=== PATIENT | male | born 1950 | race Caucasian/White ===

== ENCOUNTER 2022-04-17 14:06 | Emergency (ER) | payer MEDICARE, OTHER ==
[2022-04-17] MEDS ORDERED: Sodium Chloride 0.9% 10 ML Syringe FLUSH PRN (14:41)
[2022-04-17] MEDS ORDERED: Sodium Chloride 0.9% 1,000 ML IV ONE (14:41)
[2022-04-17] MEDS ORDERED: Acetaminophen 325 MG Tab PO ONE ×2 (14:46→18:41)
[2022-04-17 16:59] LABS: CORONAVIRUS COVID-19 NAA POSITIVE (NEGATIVE)
[2022-04-17] MEDS ORDERED: diphenhydrAMINE 50 MG/ML SDV IVPUSH PRN (18:13)
[2022-04-17] MEDS ORDERED: EPINEPHrine 1 MG/ML SDV IM PRN (18:13)
[2022-04-17] MEDS ORDERED: methylPREDNISolone Sodium Succinate 125 MG/2 ML SDV IVPUSH PRN (18:13)
[2022-04-17] MEDS ORDERED: Famotidine 20 MG/2 ML SDV IVPUSH PRN (18:13)
[2022-04-17] MEDS ORDERED: Sodium Chloride 0.9% 10 ML Syringe FLUSH SCH (18:15)
[2022-04-17] MEDS ORDERED: Acetaminophen 325 MG Tab PO PRN (20:00)
[2022-04-18] MEDS ORDERED: Piperacillin/Tazobactam 4.5 GM in Sodium Chloride 0.9% 100 ML IV ONE (09:55)
== END 2022-04-18 10:30 ==
LOC: JD.ED 14:06
DX: U07.1 COVID-19 (principal); N18.4 Chronic kidney disease, stage 4 (severe); D63.1 Anemia in chronic kidney disease
CPT/HCPCS: 0240U; 36415; 71045; 80053; 81001; 83605; 85025; 85610; 86140; 86850; 86900; 86901; 87040; 87077; 87186; 96361; 96365; 96372; 99283; A9270; J2543; J3490; J7030; M0222; Q0222

== ENCOUNTER 2022-11-02 17:58 | Emergency (ER) | payer MEDICARE, OTHER ==
[2022-11-02] MEDS ORDERED: methylPREDNISolone Sodium Succinate 40 MG/1 ML SDV IVPUSH ONE (18:41)
[2022-11-02 19:03] LABS: APPEARANCE,URINE SLT CLOUDY (Clear); BILIRUBIN,URINE NEGATIVE (Negative); COLOR,URINE YELLOW (Yellow); GLUCOSE,URINE 1+ (Negative); KETONES,URINE NEGATIVE (Negative); LEUKOCYTE ESTERASE,URINE NEGATIVE (Negative); NITRITE,URINE NEGATIVE (Negative); OCCULT BLOOD,URINE TRACE-INTACT (Negative); PH,URINE >=9.0 (5.0-8.0); PROTEIN,URINE 3+ (Negative); UROBILINOGEN,URINE 0.2 (0.2-1.0)
[2022-11-02 19:11] LABS: A/G RATIO 0.8 (1-2); ALANINE AMINOTRANSFERASE,ALT 16 U/L (16-63); ALBUMIN 2.7 g/dl (3.4-5.0); ALKALINE PHOSPHATASE 75 U/L (46-116); ANION GAP 9.3 (5-15); ASPARTATE AMNIOTRANSFERASE,AST 12 U/L (15-37); BILIRUBIN TOTAL 0.6 mg/dL (0.2-1.0); BLOOD UREA NITROGEN,BUN 11 mg/dL (7-18); BUN/CREATININE RATIO 4.6 (14-18); CARBON DIOXIDE,CO2 29 mEq/L (21-32); CHLORIDE,CL 100 mEq/L (98-107); CREATININE 2.4 mg/dL (0.7-1.3); ESTIMATED GFR 28 mL/min (>60); GLUCOSE RANDOM 150 mg/dL (70-99); POTASSIUM,K 3.3 mEq/L (3.5-5.1); PROTEIN TOTAL,TP 5.9 g/dl (6.4-8.2); SODIUM,NA 135 mEq/L (136-145)
[2022-11-02 19:18] LABS: EOSINOPHILS PERCENT AUTO 0 (0.8-7.0); IMMATURE GRAN ABSOLUTE AUTO 0.07 K/mm3 (0.00-0.10); IMMATURE GRAN PERCENT AUTO 3.6 % (<=1.0); LYMPHOCYTES ABSOLUTE AUTO 1.23 K/mm3 (1.32-3.57); LYMPHOCYTES PERCENT AUTO 64.1 % (21.8-53.1); MEAN CORPUSCULAR HEMOGLOBIN 31.7 pg (25.7-32.2); MEAN CORPUSCULAR HGB CONC 31.6 g/dl (32.2-35.5); MEAN CORPUSCULAR VOLUME 100.5 fl (79.0-92.2); MEAN PLATELET VOLUME 8.9 fl (9.4-12.3); MONOCYTES PERCENT AUTO 10.4 % (5.3-12.2); NEUTROPHILS ABSOLUTE AUTO 0.42 K/mm3 (1.78-5.38); NEUTROPHILS PERCENT AUTO 21.9 % (34.0-67.9); RED BLOOD CELL COUNT 1.89 M/mm3 (4.63-6.08)
[2022-11-02 19:29] LABS: PLATELET COUNT,PLT 7 K/mm3 (163-337); WHITE BLOOD CELL COUNT,WBC 1.92 K/mm3 (4.23-9.07)
[2022-11-02 19:32] LABS: BACTERIA,URINE MODERATE /hpf (FEW); FINE GRANULAR CASTS,URINE 0-5 /lpf (0-5); HYALINE CASTS,URINE 0-5 /lpf (0-5); WBC,URINE 0-5 /hpf (0-5)
[2022-11-02 19:33] LABS: MUCUS,URINE NOT SEEN /hpf (FEW)
[2022-11-02] MEDS ORDERED: Cefepime 2 GM in Sodium Chloride 0.9% 50 ML IV ONE (19:43)
[2022-11-02 20:34] LABS: SLIDE REVIEW ABNORMAL SMEAR
[2022-11-02] MEDS ORDERED: Acetaminophen 325 MG Tab PO ONE (22:02)
[2022-11-02 23:22] LABS: CORONAVIRUS COVID-19 NAA NEGATIVE (NEGATIVE); INFLUENZA A NAA NEGATIVE (NEGATIVE); RESPIRATORY SYNCYTIAL VIR NAA NEGATIVE (NEGATIVE)
== END 2022-11-03 07:34 | disposition home or self-care (01) ==
LOC: JD.ED 17:58
DX: T80.92XA Unspecified transfusion reaction, initial encounter (principal); N18.9 Chronic kidney disease, unspecified; D63.1 Anemia in chronic kidney disease; D61.818 Other pancytopenia; D64.9 Anemia, unspecified; R50.81 Fever presenting with conditions classified elsewhere; Z20.822 Contact with and (suspected) exposure to COVID-19
CPT/HCPCS: 0241U; 36415; 36430; 80053; 81001; 83605; 83615; 85025; 86850; 86900; 86901; 86922; 87040; 96365; 96375; 99284; A9270; J0692; J1200; J2920; J3490; J7030; P9016

== ENCOUNTER 2023-04-24 11:13 | Emergency (ER) | payer MEDICARE, OTHER ==
[2023-04-24] MEDS ORDERED: Oxymetazoline 0.05% Nasal Spray 30 ML Bottle NAS ONE ×2 (11:31→16:30)
[2023-04-24] MEDS ORDERED: Sodium Chloride 0.9% 250 ML ONE (17:15)
[2023-04-24] MEDS ORDERED: Sodium Chloride 0.9% 250 ML IV SCH (17:30)
== END 2023-04-24 19:58 | disposition home or self-care (01) ==
LOC: JD.ED 11:13
DX: R04.0 Epistaxis (principal); D46.9 Myelodysplastic syndrome, unspecified; D69.6 Thrombocytopenia, unspecified; Z99.2 Dependence on renal dialysis; Z86.16 Personal history of COVID-19; Z88.1 Allergy status to other antibiotic agents
CPT/HCPCS: 30901; 99283; A9270; C9046; J7050